=== PATIENT | male | born 1965 | race Caucasian/White ===

== ENCOUNTER 2018-01-23 14:18 | Inpatient (IN) | payer MEDICARE, OTHER ==
[~2018-01-23] VITALS: Ht 190.5 cm; Wt 112.0 kg
[2018-01-23] MEDS ORDERED: LORazepam 2 MG/ML, 1ML ONE ×2 (14:50→15:34)
[2018-01-23] MEDS ORDERED: OMNIPAQUE 350 MG/ML, 100ML BOTTLE ONE (14:54)
[2018-01-23] MEDS ORDERED: SODIUM CHLORIDE FLUSH 10ML SYR IVF ONE (15:00)
[2018-01-23] MEDS ORDERED: SODIUM CHLORIDE 0.9% 1,000ML IVBOLUS ONE (15:00)
[2018-01-23] MEDS ORDERED: MORPHINE SULFATE 4 MG/ML, 1ML IVPush PRN (15:00)
[2018-01-23 15:03] LABS: BASOPHILS # (AUTO) 0.04 x10^3/uL (0-0.1); BASOPHILS % (AUTO) 1 % (0-1); EOSINOPHILS # (AUTO) 0.06 x10^3/uL (0-0.4); EOSINOPHILS % (AUTO) 1 % (1-7); LYMPHOCYTES % (AUTO) 27 % (22-44); MD NO; MEAN CORPUSCULAR HEMOGLOBIN 30.5 pg (27.5-34.5); MEAN CORPUSCULAR HGB CONC 33.8 g/dL (33.2-36.2); MEAN CORPUSCULAR VOLUME 90.3 fL (81-97); MEAN PLATELET VOLUME 8.4 fL (7.4-10.4); MONOCYTES # (AUTO) 0.51 x10^3/uL (0.2-0.8); MONOCYTES % (AUTO) 8 % (2-9); NEUTROPHILS % (AUTO) 65 % (42-75); PLATELET COUNT 286 x10^3/uL (130-400); RED BLOOD COUNT 4.68 x10^6/uL (4.38-5.82); RED CELL DISTRIBUTION WIDTH 13.1 % (9.4-14.8)
[2018-01-23 15:14] LABS: ALANINE AMINOTRANSFERASE 35 U/L (12-78); ALBUMIN 3.4 g/dL (3.4-5.0); ANION GAP 9 mmol/L (5-15); CALCIUM 8.1 mg/dL (8.5-10.1); CHLORIDE 107 mmol/L (98-107); CREATININE 1.02 mg/dL (0.7-1.3)
[2018-01-23 15:18] LABS: ALKALINE PHOSPHATASE 43 U/L (45-117); BILIRUBIN,TOTAL 0.6 mg/dL (0.2-1.0); D-DIMER < 0.19 ug/mlFEU (0.00-0.52); INTERNATIONAL NORMALIZED RATIO 1.09 (0.93-1.1); PARTIAL THROMBOPLASTIN TIME 25 Seconds (25-31); PROTHROMBIN TIME 11.2 Seconds (9.6-11.5); TOTAL PROTEIN 6.5 g/dL (6.4-8.2)
[2018-01-23] MEDS ORDERED: GEMFIBROZIL PO (15:30)
[2018-01-23] MEDS ORDERED: AMLODIPINE BESYLATE PO (15:30)
[2018-01-23] MEDS ORDERED: PROPRANOLOL HCL PO (15:30)
[2018-01-23] MEDS ORDERED: ONDANSETRON ODT 4 MG ONE (15:38)
[2018-01-23] MEDS ORDERED: ONDANSETRON ODT 4 MG PO ONE (16:00)
[2018-01-23] MEDS ORDERED: LORazepam 2 MG/ML, 1ML IVPush ONE ×2 (16:00→17:30)
[2018-01-23] MEDS ORDERED: ONDANSETRON ODT 4 MG PO PRN (17:30)
[2018-01-23] MEDS ORDERED: POLYETHYLENE GLYCOL 17 GM PACKET PO PRN (17:30)
[2018-01-23] MEDS ORDERED: LABETALOL 5MG/ML, 20ML IVPush PRN (17:30)
[2018-01-23] MEDS ORDERED: ONDANSETRON 2MG/ML, 2ML IVPush PRN (17:30)
[2018-01-23] MEDS ORDERED: ENOXAPARIN 40 MG/0.4 ML ONE (17:47)
[2018-01-23] MEDS: ENOXAPARIN 40 MG/0.4 ML SQ SCH (17:49)
[2018-01-23 18:04] LABS: CREATINE KINASE, TOTAL 101 U/L (39-308); FREE T4 (FREE THYROXINE) 0.97 ng/dL (0.76-1.46); TROPONIN I < 0.015 ng/mL (0.000-0.045)
[2018-01-23] MEDS ORDERED: MORPHINE SULFATE 4 MG/ML, 1ML ONE ×2 (19:00→19:21)
[2018-01-23] MEDS ORDERED: GEMF600T3 PO (19:04)
[2018-01-23] MEDS ORDERED: PROP20TA PO (19:04)
[2018-01-23] MEDS ORDERED: AMLO5TAB2 PO (19:04)
[2018-01-23] MEDS: MORPHINE SULFATE 4 MG/ML, 1ML IVPush PRN ×3 (19:05→23:11)
[2018-01-23] MEDS ORDERED: OXYC-307 PO (19:15)
[2018-01-23] MEDS ORDERED: PENI500T PO (19:22)
[2018-01-23 21:23] VITALS: BP 113/75
[2018-01-23] MEDS: GEMFIBROZIL 600 MG TABLET PO SCH (23:11)
[2018-01-23 23:38] LABS: TROPONIN I < 0.015 ng/mL (0.000-0.045)
[2018-01-24] VITALS (8 sets, daily range): BP systolic 106–156; BP diastolic 63–80
[2018-01-24] MEDS: NITROGLYCERIN 0.4 MG BOTTLE (25 TABS) SL PRN ×3 (04:33→04:49)
[2018-01-24] MEDS: MORPHINE SULFATE 4 MG/ML, 1ML IVPush PRN ×2 (04:56→12:02)
[2018-01-24 05:27] LABS: BASOPHILS # (AUTO) 0.03 x10^3/uL (0-0.1); BASOPHILS % (AUTO) 1 % (0-1); EOSINOPHILS # (AUTO) 0.09 x10^3/uL (0-0.4); EOSINOPHILS % (AUTO) 2 % (1-7); LYMPHOCYTES # (AUTO) 1.67 x10^3/uL (1-3.4); LYMPHOCYTES % (AUTO) 28 % (22-44); MD NO; MEAN CORPUSCULAR HEMOGLOBIN 31.1 pg (27.5-34.5); MEAN CORPUSCULAR HGB CONC 34.4 g/dL (33.2-36.2); MEAN CORPUSCULAR VOLUME 90.4 fL (81-97); MEAN PLATELET VOLUME 8.7 fL (7.4-10.4); MONOCYTES # (AUTO) 0.58 x10^3/uL (0.2-0.8); MONOCYTES % (AUTO) 10 % (2-9); NEUTROPHILS # (AUTO) 3.59 x10^3/uL (1.8-6.8); NEUTROPHILS % (AUTO) 60 % (42-75); PLATELET COUNT 263 x10^3/uL (130-400); RED BLOOD COUNT 4.52 x10^6/uL (4.38-5.82); RED CELL DISTRIBUTION WIDTH 12.9 % (9.4-14.8)
[2018-01-24 05:34] LABS: CHLORIDE 105 mmol/L (98-107)
[2018-01-24 05:55] LABS: ALANINE AMINOTRANSFERASE 37 U/L (12-78); ALBUMIN 3.4 g/dL (3.4-5.0); ALKALINE PHOSPHATASE 44 U/L (45-117); ANION GAP 7 mmol/L (5-15); BILIRUBIN,TOTAL 0.6 mg/dL (0.2-1.0); CREATININE 0.98 mg/dL (0.7-1.3); TOTAL PROTEIN 6.7 g/dL (6.4-8.2)
[2018-01-24] MEDS: ASPIRIN 81 MG TABLET EC PO SCH (06:30)
[2018-01-24] MEDS ORDERED: POTASSIUM CHLORIDE 20 MEQ TAB.ER.PRT PO ONE (08:00)
[2018-01-24] MEDS ORDERED: REGADENOSON 0.4 MG/5 ML SYRINGE ONE (08:09)
[2018-01-24] MEDS: SENNA/DOCUSATE TABLET PO SCH (08:29)
[2018-01-24] MEDS: AMLODIPINE 5 MG TABLET PO SCH (08:29)
[2018-01-24] MEDS: GEMFIBROZIL 600 MG TABLET PO SCH ×2 (08:29→20:36)
[2018-01-24] MEDS: PROPRANOLOL 20 MG TABLET PO SCH (08:29)
[2018-01-24] MEDS: OXYcodone/APAP 10/325MG TABLET PO PRN ×2 (13:14→20:37)
[2018-01-24] MEDS ORDERED: MORPHINE SULFATE 4 MG/ML, 1ML IVPush ONE (16:00)
[2018-01-24 17:27] LABS: BASOPHILS # (AUTO) 0.03 x10^3/uL (0-0.1); BASOPHILS % (AUTO) 1 % (0-1); EOSINOPHILS # (AUTO) 0.04 x10^3/uL (0-0.4); EOSINOPHILS % (AUTO) 1 % (1-7); LYMPHOCYTES # (AUTO) 1.59 x10^3/uL (1-3.4); LYMPHOCYTES % (AUTO) 30 % (22-44); MD NO; MEAN CORPUSCULAR HEMOGLOBIN 31.8 pg (27.5-34.5); MEAN CORPUSCULAR HGB CONC 34.8 g/dL (33.2-36.2); MEAN CORPUSCULAR VOLUME 91.3 fL (81-97); MEAN PLATELET VOLUME 8.5 fL (7.4-10.4); MONOCYTES # (AUTO) 0.46 x10^3/uL (0.2-0.8); MONOCYTES % (AUTO) 9 % (2-9); NEUTROPHILS # (AUTO) 3.12 x10^3/uL (1.8-6.8); NEUTROPHILS % (AUTO) 59 % (42-75); PLATELET COUNT 287 x10^3/uL (130-400); RED BLOOD COUNT 4.82 x10^6/uL (4.38-5.82); RED CELL DISTRIBUTION WIDTH 13.1 % (9.4-14.8)
[2018-01-24 17:30] LABS: ALBUMIN 3.8 g/dL (3.4-5.0); ANION GAP 8 mmol/L (5-15); CALCIUM 8.9 mg/dL (8.5-10.1); CHLORIDE 106 mmol/L (98-107); CREATININE 0.78 mg/dL (0.7-1.3)
[2018-01-24] MEDS: ENOXAPARIN 40 MG/0.4 ML SQ SCH (17:58)
[2018-01-24] MEDS: PENICILLIN VK 500MG TABLET PO SCH (20:37)
[2018-01-25 02:01] VITALS: BP 118/68
[2018-01-25] MEDS: MORPHINE SULFATE 4 MG/ML, 1ML IVPush PRN (02:19)
[2018-01-25] MEDS: ASPIRIN 81 MG TABLET EC PO SCH (06:20)
[2018-01-25] MEDS: SENNA/DOCUSATE TABLET PO SCH (09:00)
[2018-01-25] MEDS: PENICILLIN VK 500MG TABLET PO SCH (09:22)
[2018-01-25] MEDS: GEMFIBROZIL 600 MG TABLET PO SCH (09:23)
[2018-01-25] MEDS: AMLODIPINE 5 MG TABLET PO SCH (09:23)
[2018-01-25] MEDS: PROPRANOLOL 20 MG TABLET PO SCH (09:23)
[2018-01-25 10:28] VITALS: BP 122/78
[2018-01-25] MEDS ORDERED: OMEPRAZOLE 20 MG CAPSULE.DR PO SCH (11:30)
[2018-01-25] MEDS ORDERED: OMEP-110 PO (11:32)
[2018-01-25] MEDS: OXYcodone/APAP 10/325MG TABLET PO PRN (11:36)
[2018-01-25] MEDS ORDERED: ASPI-621 PO (12:28)
== END 2018-01-25 13:18 | disposition home or self-care (01) | DRG 101 ==
LOC: ED 17:07 → EDIP 17:08 → ED 17:34 → 5SO 21:22 → DCLOUNGE 01-25 13:11
PROVIDERS: ADMIT Hospitalist; ATTEND Hospitalist
DX: G40.89 Other seizures (principal); E66.3 Overweight; R07.89 Other chest pain; E78.5 Hyperlipidemia, unspecified; I10 Essential (primary) hypertension; R29.710 NIHSS score 10; F41.1 Generalized anxiety disorder; G89.29 Other chronic pain; M54.2 Cervicalgia; I35.8 Other nonrheumatic aortic valve disorders; K04.7 Periapical abscess without sinus; R29.810 Facial weakness; Z79.82 Long term (current) use of aspirin; Z90.49 Acquired absence of other specified parts of digestive tract; Z87.891 Personal history of nicotine dependence; Z82.49 Family history of ischemic heart disease and other diseases of the circulatory system
CPT/HCPCS: 36415; 70450; 70551; 71045; 71275; 78452; 80047; 80048; 80053; 82040; 82550; 82962; 83690; 83735; 83880; 84100; 84145; 84439; 84443; 84484; 85025; 85379; 85610; 85730; 93005; 93017; 93306; 95819; 96361; 96374; 96376; J1650; J2785; Q0162; Q9967; A9502; C9898; J2060; J7030

== ENCOUNTER 2018-02-26 12:14 | Emergency (ER) | payer OTHER ==
[~2018-02-26] VITALS: Ht 190.5 cm; Wt 109.0 kg
[~2018-02-26 12:14] MED LIST: AMLO5TAB2 PO; AMLODIPINE BESYLATE PO; ASPI-621 PO; GEMF600T3 PO; GEMFIBROZIL PO; OMEP-110 PO; OXYC-307 PO; PENI500T PO; PROP20TA PO; PROPRANOLOL HCL PO
[2018-02-26] MEDS ORDERED: SODIUM CHLORIDE FLUSH 10ML SYR IVF ONE (13:30)
[2018-02-26] MEDS ORDERED: ACETAMINOPHEN 325 MG TABLET PO ONE (13:30)
[2018-02-26] MEDS ORDERED: ACETAMINOPHEN 325 MG TABLET ONE (13:41)
[2018-02-26] MEDS ORDERED: SODIUM CHLORIDE 0.9% 1,000ML IVBOLUS ONE (14:00)
[2018-02-26 14:10] LABS: BASOPHILS # (AUTO) 0.01 x10^3/uL (0-0.1); BASOPHILS % (AUTO) 0 % (0-1); EOSINOPHILS # (AUTO) 0.23 x10^3/uL (0-0.4); EOSINOPHILS % (AUTO) 4 % (1-7); LYMPHOCYTES # (AUTO) 0.78 x10^3/uL (1-3.4); LYMPHOCYTES % (AUTO) 13 % (22-44); MD NO; MEAN CORPUSCULAR HEMOGLOBIN 31.6 pg (27.5-34.5); MEAN CORPUSCULAR HGB CONC 34.9 g/dL (33.2-36.2); MEAN CORPUSCULAR VOLUME 90.6 fL (81-97); MEAN PLATELET VOLUME 8.3 fL (7.4-10.4); MONOCYTES # (AUTO) 0.44 x10^3/uL (0.2-0.8); MONOCYTES % (AUTO) 7 % (2-9); NEUTROPHILS # (AUTO) 4.78 x10^3/uL (1.8-6.8); NEUTROPHILS % (AUTO) 77 % (42-75); PLATELET COUNT 240 x10^3/uL (130-400); RED BLOOD COUNT 4.77 x10^6/uL (4.38-5.82); RED CELL DISTRIBUTION WIDTH 13.2 % (9.4-14.8)
[2018-02-26 14:14] LABS: ALANINE AMINOTRANSFERASE 101 U/L (12-78); ALBUMIN 3.6 g/dL (3.4-5.0); ANION GAP 7 mmol/L (5-15); CALCIUM 8.7 mg/dL (8.5-10.1); CHLORIDE 104 mmol/L (98-107); CREATININE 0.99 mg/dL (0.7-1.3)
[2018-02-26 14:16] LABS: ALKALINE PHOSPHATASE 54 U/L (45-117); BILIRUBIN,TOTAL 0.5 mg/dL (0.2-1.0); TOTAL PROTEIN 7.2 g/dL (6.4-8.2)
[2018-02-26] MEDS ORDERED: LORazepam 2 MG/ML, 1ML ONE (14:50)
[2018-02-26] MEDS ORDERED: LORazepam 2 MG/ML, 1ML IVPush ONE (15:00)
[2018-02-26] MEDS ORDERED: CEFTRIAXONE PMX 1GM/50ML 50 ML ONE (16:22)
[2018-02-26 16:25] VITALS: BP 109/59
[2018-02-26] MEDS ORDERED: METOPROLOL 1 MG/ML, 5ML IVPush ONE (16:30)
[2018-02-26] MEDS ORDERED: CEFTRIAXONE PMX 1GM/50ML 50 ML IV ONE (16:30)
[2018-02-26 17:32] LABS: MICROSCOPIC NOT IND
[2018-02-26 17:56] LABS: CULTURE INDICATED? NO
== END 2018-02-26 16:46 | disposition home or self-care (01) ==
LOC: ED 16:40
DX: R50.9 Fever, unspecified (principal); R53.1 Weakness
CPT/HCPCS: 36415; 70551; 71045; 72141; 80053; 81003; 83605; 84145; 85025; 87040; 93005; 96361; 96365; 96375; 99285; J0696; J2060; J7030